=== PATIENT | male | born 1930 | race Caucasian/White ===

== ENCOUNTER 2018-07-25 09:51 | Emergency (ER) | payer MEDICARE ==
[2018-07-25 10:38] LABS: #Basophils 0.1 thou/uL (0.0-0.2); #Lymphocytes 0.6 thou/uL (1.20-3.40); #Monocytes 0.7 thou/uL (0.11-0.59); #Neutrophils 5.8 thou/uL (1.40-6.50); %Basophils 0.9 % (0.0-1.0); %Eosinophils 0.5 % (0.0-10.0); %Lymphocytes 8.4 % (21.0-51.0); %Monocytes 9.3 % (0.0-10.0); %Neutrophils 80.9 % (42.0-75.0); Hemoglobin 13.5 g/dL (14.0-18.0); Mean Corpuscular HGB CONC 31.5 g/dL (32.0-36.0); Mean Corpuscular Volume 92.1 fL (78.0-98.0); Mean Platelet Volume 11.1 fL (7.4-10.4); Platelet Count 213 thou/uL (130-400); Red Blood Cell (RBC) Count 4.66 mill/uL (4.70-6.10); White Blood Cell (WBC) Count 7.2 thou/uL (4.8-10.8)
[2018-07-25 11:02] LABS: ALT (SGPT) 18 U/L (8-55); AST (SGOT) 16 U/L (5-34); Albumin 3.6 g/dL (3.4-4.8); Alkaline Phosphatase 89 U/L (40-150); Anion Gap 13 mmol/L (10-20); BUN (Urea Nitrogen) 16 mg/dL (8.4-25.7); Bilirubin, Total 0.6 mg/dL (0.2-1.2); CK (CPK) 90 U/L (30-200); Calc. Creatinine Clearance 0 mL/min (70-130); Calcium 9.1 mg/dL (7.8-10.44); Carbon Dioxide 26 mmol/L (23-31); Chloride 105 mmol/L (98-107); Estimated GFR-MDRD 69; Globulin 2.9 g/dL (2.4-3.5); Glucose 173 mg/dL (83-110); Potassium 4.4 mmol/L (3.5-5.1); Protein, Total 6.5 g/dL (5.8-8.1); Sodium 140 mmol/L (136-145)
--- NOTE | 2018-07-25 11:48 | CT ---
CT HEAD WITHOUT CONTRAST: 07/25/2018 HISTORY: Dizziness. COMPARISON: None. TECHNIQUE: Axial CT imaging is obtained at 4.8 mm intervals, from the vertex through the skull base, without con trast. FINDINGS: There is mucosal thickening involving the imaged portion of the maxillary sinus, on the right. Image d paranasal sinuses and mastoid air cells are otherwise unremarkable. No displaced calvarial fracture. No intracranial hemorrhage, midline shift, or mass effect. There is mild diffuse cerebral volume loss. There is prominent periventricular, deep, and subcortica l white matter hypodensity, suggesting extensive small vessel disease. There is atherosclerotic calc ification of the cavernous carotid arteries and the distal vertebral arteries. IMPRESSION: Volume loss and evidence of small vessel disease. No intracranial hemorrhage. POS: [facility]
--- NOTE | 2018-07-25 11:50 | RAD ---
FRONTAL VIEW CHEST: INDICATIONS: Dizziness. FINDINGS: There is elevation of the right hemidiaphragm. There are patchy bibasilar densities. The cardiac si lhouette is accentuated by the portable technique. Mild prominence of the pulmonary vasculature with interstitial prominence is seen. There is calcification and ectasia of the thoracic aorta. There i s a subtle, chronic rib deformity inferolaterally, on the left. IMPRESSION: 1. Elevated right hemidiaphragm. 2. Findings that likely relate to fluid overload from congestive heart failure. Correlate clinicall y. Imaging followup may be obtained for continued assessment. POS: [facility]
[2018-07-25 11:53] LABS: Bilirubin Negative (Negative); Blood, Urine Trace (Negative); Clarity Clear (Clear); Glucose, Urine (Dipstick) Negative (Negative); Leukocyte Negative (Negative); Nitrite Negative (Negative); Protein, Urine (Dipstick) Negative (Neg-Trace); Specific Gravity, Urine 1.015 (1.005-1.030); Urobilinogen 0.2 mg/dL (0.2-1.0)
[2018-07-25 11:56] LABS: RBC/HPF 0-3 HPF (0-3); WBC/HPF 0-3 HPF (0-3)
[2018-07-25 11:57] LABS: Bacteria/HPF None Seen HPF (None Seen); Hyaline Casts/LPF NONE SEEN LPF (0-3 Hyaline); Squamous Epithelial None Seen HPF (0-3)
[2018-07-25] MEDS ORDERED: Sodium Chloride 0.9% 100 ML ONE (12:52)
[2018-07-25] MEDS ORDERED: cefTRIAXone\\ROCEPHIN 1 GM VIAL ONE (12:52)
[2018-07-25] MEDS ORDERED: Azithromycin 500 MG VIAL ONE (12:52)
== END 2018-07-25 14:15 | disposition home or self-care (01) ==
LOC: SCSER 09:51
DX: J20.9 Acute bronchitis, unspecified (principal); E11.9 Type 2 diabetes mellitus without complications; E78.5 Hyperlipidemia, unspecified; J45.909 Unspecified asthma, uncomplicated; Z79.84 Long term (current) use of oral hypoglycemic drugs; Z79.82 Long term (current) use of aspirin; Z79.899 Other long term (current) drug therapy
CPT/HCPCS: 70450; 71045; 80053; 81003; 81015; 82550; 83605; 84484; 85025; 87804; 93005; 96365; 96367; J0456; J0696; J7050; J7620